=== PATIENT | male | born 1980 | race Caucasian/White ===

== ENCOUNTER 2019-05-24 06:35 | Observation (INO) ==
[2019-05-24] MEDS ORDERED: Isovue-370 500 ML BOTTLE IVP ONE (06:55)
[2019-05-24 07:19] LABS: Basophils % 0.2 %; Eosinophils % 0.1 %; Hematocrit 43.8 % (37.5-50.1); Hemoglobin 14.7 g/dL (12.9-16.9); Immature Granulocytes % 0.4 % (0-4); Lymphocytes # 1.3 K/mcL (0.6-4.6); Lymphocytes % 8.3 %; Mean Corpuscular HGB Conc 33.6 g/dL (31.6-35.5); Mean Corpuscular Volume 86.4 fL (83.0-100.0); Mean Platelet Volume 9.6 fL (9.4-12.4); Monocytes # 1.1 K/mcL (0.0-1.3); Monocytes % 7.3 %; Neutrophils # 12.9 K/mcL (1.6-8.9); Platelet Count 257 K/mcL (140-400); Red Blood Count 5.07 M/mcL (4.19-5.50); Red Cell Distribution Width 12.8 % (11.5-14.5); Segmented Neutrophils % 83.7 %; White Blood Count 15.4 K/mcL (4.3-11.1)
[2019-05-24 07:39] LABS: Alanine Aminotransferase 29 Units/L (7-52); Albumin 4.7 g/dL (3.5-5.7); Albumin/Globulin Ratio 1.6 (1.1-2.2); Alkaline Phosphatase 57 Units/L (34-104); Aspartate Amino Transferase 15 Units/L (13-39); BUN/Creatinine Ratio 18 (6-26); Bilirubin,Direct 0.1 mg/dL (0.0-0.2); Bilirubin,Indirect 0.6 mg/dL (0.0-1.2); Bilirubin,Total 0.7 mg/dL (0.3-1.0); Blood Urea Nitrogen 12 mg/dL (6-20); Calcium 9.7 mg/dL (8.6-10.3); Carbon Dioxide 26 mEq/L (23-29); Chloride 101 mEq/L (98-107); Glucose 108 mg/dL (70-105); Lipase 12 Units/L (11-82); Osmolality,Calculated 282 (280-300); Potassium 4.1 mEq/L (3.5-5.1); Sodium 136 mEq/L (136-145); Total Protein 7.7 g/dL (6.4-8.9); eGFR For African Americans > 60 (> 60); eGFR For Non-African Americans > 60 (> 60)
[2019-05-24] MEDS ORDERED: Piperacillin/Tazobactam 3.375 GM in 0.9 % Sodium Chloride Mini Bag 100 ML IVPB ONE ×2 (08:30→15:59)
[2019-05-24] MEDS ORDERED: 0.9 % Sodium Chloride 1,000 ML IVC ONE (08:30)
[2019-05-24 08:36] LABS: Bilirubin,Urine Negative (Negative); Blood,Urine Negative (Negative); Clarity,Urine Clear (Clear); Color,Urine Yellow (Yellow); Glucose,Urine (UA) Normal (Normal); Ketones,Urine Negative (Negative); Leukocyte Esterase,Urine Negative (Negative); Nitrite,Urine Negative (Negative); Protein,Urine Negative (Neg-Trace); Specific Gravity,Urine 1.019 (1.010-1.025); Urobilinogen,Urine Normal (Normal)
[2019-05-24] MEDS ORDERED: Ondansetron 4 MG/2 ML VIAL IVP PRN ×2 (11:00→17:44)
[2019-05-24] MEDS ORDERED: Pantoprazole 40 MG VIAL IVP SCH (11:00)
[2019-05-24] MEDS ORDERED: *HR* Promethazine 25 MG/ML VIAL IVP PRN ×3 (11:00→17:44)
[2019-05-24] MEDS ORDERED: 0.9 % Sodium Chloride 1,000 ML IVC SCH (11:00)
[2019-05-24] MEDS ORDERED: Acetaminophen IV 1,000 MG/100 ML INFUS..BTL IVPB ONE (11:13)
[2019-05-24 12:28] LABS: INR 1.1; Prothrombin Time 12.9 Seconds (9.4-12.1)
[2019-05-24] MEDS ORDERED: *HR* Meperidine 25 MG/ML SYRINGE IVP PRN (15:31)
[2019-05-24] MEDS ORDERED: Lidocaine -MPF 4% 5 ML AMPUL ONE (15:31)
[2019-05-24] MEDS ORDERED: Ondansetron 4 MG/2 ML VIAL IVP ONE (15:31)
[2019-05-24] MEDS ORDERED: *HR* HYDROmorphone (PF) 1 MG/ML SYRINGE IVP PRN (15:31)
[2019-05-24] MEDS ORDERED: *HR* FentaNYL (PF) 100 MCG/2 ML VIAL ONE (15:35)
[2019-05-24] MEDS ORDERED: *HR* Rocuronium Bromide 50 MG/5 ML VIAL ONE (15:35)
[2019-05-24] MEDS ORDERED: *HR* Succinylcholine 200 MG/10 ML VIAL IVP ONE (15:35)
[2019-05-24] MEDS ORDERED: Lidocaine -MPF 2% 2 ML VIAL ONE (15:35)
[2019-05-24] MEDS ORDERED: *HR* Midazolam HCl 2 MG/2 ML VIAL ONE (15:35)
[2019-05-24] MEDS ORDERED: Ondansetron 4 MG/2 ML VIAL ONE (15:35)
[2019-05-24] MEDS ORDERED: *HR* Propofol 200 MG/20 ML VIAL IVP ONE (15:35)
[2019-05-24] MEDS ORDERED: *HR* HYDROMORPHONE 2 MG/ML VIAL ONE (16:12)
[2019-05-24] MEDS ORDERED: Neostigmine Methylsulfate 3 MG/3 ML SYRINGE ONE ×2 (16:38)
[2019-05-24] MEDS: Acetaminophen IV 1,000 MG/100 ML INFUS..BTL IVPB SCH ×2 (18:38→23:39)
[2019-05-24] MEDS: Piperacillin/Tazobactam 3.375 GM in 0.9 % Sodium Chloride Mini Bag 100 ML IVPB SCH (23:41)
[2019-05-25] MEDS: Acetaminophen IV 1,000 MG/100 ML INFUS..BTL IVPB SCH (05:50)
[2019-05-25 06:58] VITALS: BP 121/75
[2019-05-25] MEDS: Piperacillin/Tazobactam 3.375 GM in 0.9 % Sodium Chloride Mini Bag 100 ML IVPB SCH (08:03)
[2019-05-25] MEDS ORDERED: Pantoprazole 40 MG VIAL IVP SCH (09:00)
== END 2019-05-25 10:35 | disposition home or self-care (01) ==
LOC: EMEROOARM 06:35 → 3ANU 06:35
PROVIDERS: ADMIT Surgery; ATTEND Surgery